=== PATIENT | male | born 1960 | race Two or more races ===

== ENCOUNTER 2019-08-27 04:40 | Emergency (ER) | payer OTHER ==
[2019-08-27] MEDS ORDERED: LISI40TA4 PO (08:56)
[2019-08-27] MEDS ORDERED: METF-442 PO (08:56)
[2019-08-27] MEDS ORDERED: AMLO5TAB9 PO (08:56)
[2019-08-27] MEDS ORDERED: SECU150S2 SQ (08:56)
[2019-08-27] MEDS ORDERED: DEXTROSE 50%-WATER 50 ML DISP.SYRIN IV PRN (09:00)
[2019-08-27] MEDS ORDERED: INSULIN REGULAR, HUMAN 100 UNIT/ML 3 ML VIAL SQ PRN (09:00)
[2019-08-27] MEDS ORDERED: *INSULIN REGULAR(HUMULIN R)HUM 100 UNIT/ML VIAL SQ PRN (09:00)
--- NOTE | 2019-08-27 09:42 | NUR ---
DR CELAYA AT BEDSIDE
--- NOTE | 2019-08-27 09:58 | NUR ---
Patient does not wish to proceed with medical care recommended by Dr. Grady. Patient given information related to possible complications, up to and including , which could occur as a result of leaving the hospital at this time. Patient verbalizes understanding of risks involved due to leaving against medical advice. Patient has signed AMA form.
--- NOTE | 2019-08-27 10:00 | NUR ---
DR THURSTON MADE AWARE OF PATIENT GOING AMA
[2019-08-27 10:03] VITALS: BP 158/92
[2019-08-27 11:05] LABS: ALANINE AMINOTRANSFERASE 30 U/L (12-78); ALBUMIN 3.3 g/dL (3.4-5.0); ALKALINE PHOSPHATASE 67 U/L (46-116); ASPARTATE AMINOTRANSFERASE 19 U/L (15-37); BILIRUBIN,TOTAL 0.4 mg/dL (0.2-1.0); CALCIUM, SERUM 8.6 mg/dL (8.5-10.1); CARBON DIOXIDE 29 mmol/L (21-32); CHLORIDE 104 mmol/L (98-107); CREATININE 0.7 mg/dL (0.6-1.3); GLUCOSE 198 mg/dL (74-106); POTASSIUM 3.9 mmol/L (3.5-5.1); SODIUM SERUM 140 mmol/L (136-145); UREA NITROGEN, BLOOD 11 mg/dL (7-18)
[2019-08-27 11:06] LABS: B-TYPE NATRIURETIC PEPTIDE 20 PG/ML (0-125); TOTAL PROTEIN, SERUM 7.3 g/dL (6.4-8.2)
--- NOTE | 2019-08-27 11:10 | NUR ---
CALL FROM DR THURSTON WANTING TO ADVICE PATIENT TO HOLD LISINOPRIL, ATTEMPTED TO CALL HOME PHONE NUMBER ON FILE MULTIPLE TIMES, LINE BUSY.
[2019-08-27] MEDS ORDERED: BLOOD SUGAR DIAGNOSTIC 1 EACH STRIP VI SCH (12:00)
== END 2019-08-27 10:04 | disposition left against medical advice (07) ==
LOC: ER 04:40 → ICU 07:53 → UNDOADMIN 07:53
DX: K12.2 Cellulitis and abscess of mouth (principal); I10 Essential (primary) hypertension; E11.9 Type 2 diabetes mellitus without complications; I48.91 Unspecified atrial fibrillation
CPT/HCPCS: 36415; 71045; 80048; 80076; 83880; 84484; 86850; 87081; 93005; 99284; J1815 ×2

== ENCOUNTER 2021-05-09 22:00 | Emergency (ER) | payer OTHER ==
[~2021-05-09] VITALS: Ht 167.6 cm; Wt 88.5 kg
[~2021-05-09 22:00] MED LIST: AMLO-212 PO; LISI40TA13 PO; METF-442 PO; SECU150S2 SQ
--- NOTE | 2021-05-09 22:41 | NUR ---
BIBS FROM HOME TO ER BED 6. AAOX4. NOT IN RESP DISTRESS. AMBULATORY. CAME IN FOR L SIDED CP NON RADIAITING SINCE 1400. SHARP PRESSURE. 03/20. EKG DONE AT BEDSIDE. PALCE ON MONITOR MD WAS AT THE BEDSIDE FOR EVAL. ORDERS RECEIVED, NOTED AND CARRIED OUT
[2021-05-09 22:42] LABS: BASOPHILS # (AUTO) 0.1 K/uL (0.0-0.2); BASOPHILS % (AUTO) 1.3 % (0.0-2.0); EOSINOPHILS % (AUTO) 5.4 % (0.0-6.0); HEMATOCRIT 43 % (39-51); HEMOGLOBIN 14.8 g/dL (13.5-17.5); LYMPHOCYTES # (AUTO) 2.9 K/uL (0.8-4.8); LYMPHOCYTES % (AUTO) 25.7 % (20.0-44.0); MEAN CORPUSCULAR HGB CONC 35 g/dl (31.0-36.0); MEAN CORPUSCULAR VOLUME 84 fL (80-96); MONOCYTES # (AUTO) 0.9 K/uL (0.1-1.30); MONOCYTES % (AUTO) 7.7 % (2.0-12.0); NEUTROPHILS # (AUTO) 6.7 K/uL (1.8-8.9); NEUTROPHILS % (AUTO) 59.9 % (43.0-81.0); PLATELET COUNT (AUTO) 304 K/uL (150-450); WHITE BLOOD COUNT (AUTO) 11.2 K/uL (4.3-11.0)
[2021-05-09 22:43] LABS: CALCIUM, SERUM 8.4 mg/dL (8.5-10.1); CARBON DIOXIDE 27 mmol/L (21-32); CHLORIDE 103 mmol/L (98-107); CREATININE 0.8 mg/dL (0.6-1.3); GLUCOSE 288 mg/dL (74-106); POTASSIUM 3.6 mmol/L (3.5-5.1); SODIUM SERUM 140 mmol/L (136-145); UREA NITROGEN, BLOOD 15 mg/dL (7-18)
[2021-05-09 22:49] LABS: ALANINE AMINOTRANSFERASE 34 U/L (12-78); ALBUMIN 3.3 g/dL (3.4-5.0); ALKALINE PHOSPHATASE 82 U/L (46-116); ASPARTATE AMINOTRANSFERASE 19 U/L (15-37); BILIRUBIN,DIRECT 0.1 mg/dL (0.0-0.2); BILIRUBIN,TOTAL 0.3 mg/dL (0.2-1.0); TOTAL PROTEIN, SERUM 7.3 g/dL (6.4-8.2)
--- NOTE | 2021-05-09 23:20 | NUR ---
called clemente to have images read
--- NOTE | 2021-05-09 23:55 | NUR ---
covid swab sent to lab
--- NOTE | 2021-05-10 00:45 | NUR ---
faxed clinicals to abhi Baxter
--- NOTE | 2021-05-10 01:26 | NUR ---
DR PORTER FROM [facility] ON T HE PHONE W/ DR GARCÍA
--- NOTE | 2021-05-10 01:38 | NUR ---
REC'D A CALL FROM KEYA THE GLOBAL HUMAN RESOURCES DIRECTOR; PER DR PORTER TO DRAW ANOTHER TROPONIN AT 0230 AND IF IT'S NEGATIVE, PT EILL SEE DR JOE, [facility] TECHNICAL LEAD SENIOR DEVELOPER IN . KEYA: [phone]. DR GARCÍA MADE AWARE W/ A NEW ORDER. NOTED
--- NOTE | 2021-05-10 02:29 | NUR ---
PHLEB AT BED SIDE FOR 2ND TROP
--- NOTE | 2021-05-10 03:28 | NUR ---
CALLED KEYA , THE SUB ASSEMBLY TEAM WORKER AND INFORMED HER REGARDING THE 2ND TROPONIN: NEGATIVE RESULT. PT WILL BE DISCHARGED AND WILL HAVE TO F/U W/ DR BRITTANY JOE, CARE PROGRAM RESIDENT. 'S TEL: [phone] ADDRESS: [address] [place] [address]. [address]
--- NOTE | 2021-05-10 03:37 | NUR ---
PT WAS PROVIDED W/ THE ENVIRONMENT COORDINATOR NAME AND CONTACT NUMBER
[2021-05-10 03:42] VITALS: BP 153/88
--- NOTE | 2021-05-10 03:43 | NUR ---
pt is medically stable for d/c. IV removed. Catheter intact and site benign. Pressure and 4x4 applied to site. No bleeding noted.Patient discharged to home in stable condition. Written and verbal after care instructions given. Patient verbalizes understanding of instruction.
== END 2021-05-10 03:44 | disposition home or self-care (01) ==
LOC: ER 22:04
DX: R07.9 Chest pain, unspecified (principal); I10 Essential (primary) hypertension; E11.9 Type 2 diabetes mellitus without complications; Z79.84 Long term (current) use of oral hypoglycemic drugs; Z20.822 Contact with and (suspected) exposure to COVID-19
CPT/HCPCS: 36415 ×2; 71045; 80048; 80076; 84484 ×2; 85025; 87081; 87426; 93005; 99285; C9803